=== PATIENT | female | born 1990 | race Caucasian/White ===

== ENCOUNTER 2019-07-31 17:38 | Emergency (ER) | payer SELFPAY ==
[~2019-07-31] VITALS: Ht 170.2 cm; Wt 68.5 kg
[2019-07-31 17:46] VITALS: BP 105/66; Ht 170.2 cm; Wt 68.5 kg
== END 2019-07-31 18:10 | disposition home or self-care (01) ==
LOC: ED 17:38
DX: Z02.79 Encounter for issue of other medical certificate (principal); Z88.8 Allergy status to other drugs, medicaments and biological substances